=== PATIENT | female | born 1935 | race Hispanic/Latino ===

== ENCOUNTER 2019-01-02 15:16 | Emergency (ER) | payer MEDICARE ==
[2019-01-02 16:04] LABS: Basophils # (Auto) 0.1 K/mm3 (0.0-0.1); Basophils % (Auto) 1.1 % (0.0-1.8); Hematocrit 28.7 % (35.5-45.6); Lymphocytes # (Auto) 1.9 K/mm3 (1.2-5.4); Lymphocytes % (Auto) 35.6 % (13.4-35.0); Mean Corpuscular HGB Conc 35 % (32-34); Mean Corpuscular Volume 98 fl (84-94); Monocytes # (Auto) 0.4 K/mm3 (0.0-0.8); Monocytes % (Auto) 8.2 % (0.0-7.3); Platelet Count 211 K/mm3 (140-440); Red Blood Count 2.94 M/mm3 (3.65-5.03); Red Cell Distribution Width 15.8 % (13.2-15.2)
[2019-01-02 16:18] LABS: INR 1.07 (0.87-1.13)
[2019-01-02 16:19] LABS: Alanine Aminotransferase 18 units/L (7-56); Albumin 2.7 g/dL (3.9-5); BUN/Creatinine Ratio 22; Blood Urea Nitrogen 13 mg/dL (9-20); Calcium 7.8 mg/dL (8.4-10.2); Hemolysis Index 6; Partial Thromboplastin Time 29.2 Sec. (24.2-36.6)
--- NOTE | 2019-01-02 16:39 | Emergency Department Report ---
ED Fall HPI - General Chief Complaint: Fall Stated Complaint: FALL/LEFT BROW LAC Time Seen by Provider: 01/02/19 16:17 Source: EMS Mode of arrival: Stretcher Limitations: Physical Limitation, Other (dementia) - History of Present Illness Initial Comments: 83 year old female with a past medical history of dementia and hypertension presents to the hospital with complaints of fall out of her wheelchair. Patient is wheelchair-bound due to chronic generalized weakness. She slid out of her wheelchair striking the left brow. No LOC reported. Patient denies any pain currently and is at baseline mental status as per daughter and hall supervisor at the bedside. No reports of nausea or vomiting. Patient is also DO NOT RESUSCITATE. Tetanus up to date. - Related Data Allergies Allergy/AdvReac Type Severity Reaction Status Date / Time No Known Allergies Allergy Unverified 01/02/19 15:37 ED Review of Systems ROS: Stated complaint: FALL/LEFT BROW LAC Other details as noted in HPI Comment: All other systems reviewed and negative ED Past Medical Hx - Past Medical History Previous Medical History?: Yes Hx Hypertension: Yes Hx Dementia: Yes - Social History Smoking Status: Unknown if ever smoked ED Physical Exam - General Limitations: Altered Mental Status, Physical Limitation - Other Other exam information: General: No limitations, patient is alert in no acute distress Head exam: Atraumatic, normocephalic Eyes exam: Normal appearance, pupils equal reactive to light, extraocular movements intact, left lateral brow contusion with superficial laceration/skin tear. ENT: Moist mucous membrane, normal oropharynx Neck exam: Normal inspection, full range of motion, no meningismus nontender Respiratory exam: Clear to auscultation bilateral, no wheezes, rales, crackles Cardiovascular: Normal rate and rhythm, normal heart sounds Abdomen: Soft, nondistended, and nontender, with normal bowel sounds, no rebound, or guarding Extremity: Full range of motion normal inspection no deformity Back: Normal Inspection, full range of motion, no tenderness Neurologic: Alert, oriented to self, cranial nerves intact, no motor or sensory deficit Psychiatric: normal affect, normal mood Skin: Warm, dry, intact ED Course Vital Signs 01/02/19 15:28 Temperature 97.6 F Pulse Rate 86 Respiratory 16 Rate Blood Pressure 138/58 O2 Sat by Pulse 98 Oximetry ED Medical Decision Making - Lab Data Result diagrams: 01/02/19 15:44 01/02/19 15:44 Lab Results 01/02/19 01/02/19 01/02/19 Range/Units 15:44 15:44 15:44 WBC 5.4 (4.5-11.0) K/mm3 RBC 2.94 L (3.65-5.03) M/mm3 Hgb 10.0 L (11.8-15.2) gm/dl Hct 28.7 L (35.5-45.6) % MCV 98 H (84-94) fl MCH 34 H (28-32) pg MCHC 35 H (32-34) % RDW 15.8 H (13.2-15.2) % Plt Count 211 (140-440) K/mm3 Lymph % (Auto) 35.6 H (13.4-35.0) % Sherman % (Auto) 8.2 H (0.0-7.3) % Eos % (Auto) 0.0 (0.0-4.3) % Baso % (Auto) 1.1 (0.0-1.8) % Lymph # 1.9 (1.2-5.4) K/mm3 Sherman # 0.4 (0.0-0.8) K/mm3 Eos # 0.0 (0.0-0.4) K/mm3 Baso # 0.1 (0.0-0.1) K/mm3 Seg Neutrophils % 55.1 (40.0-70.0) % Seg Neutrophils # 3.0 (1.8-7.7) K/mm3 PT 14.6 (12.2-14.9) Sec. INR 1.07 (0.87-1.13) APTT 29.2 (24.2-36.6) Sec. Sodium 140 (137-145) mmol/L Potassium 3.0 L (3.6-5.0) mmol/L Chloride 100.3 (98-107) mmol/L Carbon Dioxide 27 (22-30) mmol/L Anion Gap 16 mmol/L BUN 13 (9-20) mg/dL Creatinine 0.6 L (0.8-1.5) mg/dL Estimated GFR > 60 ml/min BUN/Creatinine Ratio 22 % Glucose 115 H (75-100) mg/dL Calcium 7.8 L (8.4-10.2) mg/dL Total Bilirubin 0.70 (0.1-1.2) mg/dL AST 54 H (5-40) units/L ALT 18 (7-56) units/L Alkaline Phosphatase 111 (35-129) units/L Total Protein 6.0 L (6.3-8.2) g/dL Albumin 2.7 L (3.9-5) g/dL Albumin/Globulin Ratio 0.8 % - Radiology Data Radiology results: report reviewed PROCEDURE: CT HEAD/BRAIN WO CON TECHNIQUE: Computerized tomography of the head was performed without contrast material. CT DOSE LENGTH PRODUCT: 920.5 mGycm HISTORY: fall with left brow injury, POSS LAC TO BACK OF HEAD. PT AMS BASELINE COMPARISONS: None . FINDINGS: Skull and scalp: There is soft tissue swelling lateral to the left orbit. Acute air bubbles in this same area suggests laceration. Paranasal sinuses: Normal . Ventricles and subarachnoid spaces: Normal . Cerebrum: No evidence of hemorrhage, acute infarction or mass . 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 Low density periventricular white matter is consistent with small vessel ischemic changes Cerebellum and brainstem: No evidence of hemorrhage, acute infarction or mass . Vasculature: Normal . Other: None . ASPECTS: 10 IMPRESSION: No acute intracranial abnormality. Soft tissue swelling lateral to the left orbit with laceration PROCEDURE: CT ORBIT/EAR/FOSSA WO CON TECHNIQUE: Axial helical imaging through the orbits with sagittal and coronal reformatted images obtained. HISTORY: fall with left brow injury COMPARISONS: Head CT also performed today FINDINGS: There is no evidence of fracture. The paranasal sinuses are without mucosal thickening or air-fluid levels. The orbital contents are unremarkable. There is left facial and periorbital soft tissue swelling with a small collection of air in the left periorbital soft tissues. IMPRESSION: 1. Left facial and periorbital soft tissue injury without evidence of fracture and without evidence of intraorbital injury. - Medical Decision Making ct reports reviewed po kcl for mild hypokalemia pt at baseline to be d/[facility]ham home - Differential Diagnosis fracture, contusion, ICH Critical Care Time: No Critical care attestation.: If time is entered above; I have spent that time in minutes in the direct care of this critically ill patient, excluding procedure time. ED Disposition Clinical Impression: Fall, Contusion of left orbit, Hypokalemia Disposition: DC-01 TO HOME OR SELFCARE Is pt being admited?: No Does the pt Need Aspirin: No Condition: Stable Instructions: Fall Prevention for Older Adults (ED), Black Eye (ED), Hypokalemi a (ED) Additional Instructions: Continue your medication is prescribed. Follow up with your doctor or the clinic/doctor provided. Return if symptoms worsen as indicated by your discharge instructions Referrals: PAULO WORLEY [Other] - 3-5 Days Time of Disposition: 18:24
--- NOTE | 2019-01-02 17:33 | Cat Scan Report ---
PROCEDURE: CT HEAD/BRAIN WO CON TECHNIQUE: Computerized tomography of the head was performed without contrast material. CT DOSE LENGTH PRODUCT: 920.5 mGycm HISTORY: fall with left brow injury, POSS LAC TO BACK OF HEAD. PT AMS BASELINE COMPARISONS: None . FINDINGS: Skull and scalp: There is soft tissue swelling lateral to the left orbit. Acute air bubbles in this same area suggests laceration. Paranasal sinuses: Normal . Ventricles and subarachnoid spaces: Normal . Cerebrum: No evidence of hemorrhage, acute infarction or mass . There is a small remote lacunar infa rct in the left basal ganglia. Low density periventricular white matter is consistent with small vess el ischemic changes Cerebellum and brainstem: No evidence of hemorrhage, acute infarction or mass . Vasculature: Normal . Other: None . ASPECTS: 10 IMPRESSION: No acute intracranial abnormality. Soft tissue swelling lateral to the left orbit with la ceration This document is electronically signed by Padmini Lopez MD., January 02 2019 05:31:38 PM ET
[2019-01-02] MEDS ORDERED: POTASSIUM CHLORIDE PO ONE (18:05)
--- NOTE | 2019-01-02 18:07 | Cat Scan Report ---
PROCEDURE: CT ORBIT/EAR/FOSSA WO CON TECHNIQUE: Axial helical imaging through the orbits with sagittal and coronal reformatted images obt ained. HISTORY: fall with left brow injury COMPARISONS: Head CT also performed today FINDINGS: There is no evidence of fracture. The paranasal sinuses are without mucosal thickening or air-fluid levels. The orbital contents are unremarkable. There is left facial and periorbital soft tissue swelling with a small collection of air in the left periorbital soft tissues. IMPRESSION: 1. Left facial and periorbital soft tissue injury without evidence of fracture and without evidence o f intraorbital injury. This document is electronically signed by Beverley Redding MD., January 02 2019 06:06:07 PM ET
[2019-01-02] MEDS ORDERED: K-DUR PO ONE (18:14)
[2019-01-02 20:25] VITALS: BP 147/89
== END 2019-01-02 20:27 | disposition home or self-care (01) ==
LOC: EDSEX → ED 15:16
DX: S05.12XA Contusion of eyeball and orbital tissues, left eye, initial encounter (principal); E87.6 Hypokalemia; I10 Essential (primary) hypertension; F03.90 Unspecified dementia, unspecified severity, without behavioral disturbance, psychotic disturbance, mood disturbance, and anxiety; W05.0XXA Fall from non-moving wheelchair, initial encounter; Y93.89 Activity, other specified; Y92.89 Other specified places as the place of occurrence of the external cause; Y99.8 Other external cause status
CPT/HCPCS: 36415; 70450; 70480; 80053; 85025; 85610; 85730